=== PATIENT | female | born 1990 | race Caucasian/White ===

== ENCOUNTER → 2018-07-01 11:25 | Outpatient (CLI) | payer OTHER, SELFPAY ==
[2018-07-01 12:29] LABS: Appearance Urine UA CLEAR; Bilirubin Urine UA NEGATIVE (NEGATIVE); Color Urine UA YELLOW; Glucose Urine UA NEGATIVE (Normal); Ketones Urine UA NEGATIVE (NEGATIVE); Leukocyte Esterase Urine UA NEGATIVE (NEGATIVE); Nitrite Urine UA NEGATIVE (Negative); Occult Blood Urine UA NEGATIVE (Negative); Protein Urine UA NEGATIVE (Negative); Specific Gravity Urine UA 1.015 (1.000-1.035); Urobilinogen Urine UA 0.2 E.U./dL (0.2); pH Urine UA 6.5 (4.5-8.0)
[2018-07-01 12:41] LABS: Add Manual Diff / Slide Review NO; Basophils Percent Auto 0.5 % (0-2); Eosinophils Percent Auto 1.3 % (2-4); Hematocrit 40.2 % (36-46); Hemoglobin 13.5 g/dL (12.0-16.0); Lymphocytes Percent Auto 30.1 % (25-40); Mean Corpuscular HGB Conc 33.5 % (30-36); Mean Corpuscular Hemoglobin 29.5 PG (26-34); Mean Corpuscular Volume 88.1 fL (80-100); Monocytes Percent Auto 6.5 % (3-14); Neutrophils Absolute Auto 4800 /uL (1500-7000); Neutrophils Percent Auto 61.6 % (50-75); Platelet Count 246 X10^3/uL (150-400); Red Blood Cell Count 4.56 X10^6/uL (4.0-5.2); White Blood Cell Count 7.8 X10^3/uL (4.5-11.0)
[2018-07-01 15:08] LABS: HIV 1 and 2 Antibody NEGATIVE (NEGATIVE); Hep C Virus Ab w/Reflex Quant NEGATIVE s/c (NEGATIVE); Hepatitis B Surface Antigen NEGATIVE s/c (NEGATIVE); Rubella Antibody IgG 44.2 IU/mL (>15)
[2018-07-03 17:33] LABS: RPR Screen Reactive (Nonreactive); RPR Titer Reactive 1:1 titer (Nonreactive)
[2018-07-06 09:44] LABS: HSV 2 IGG AB < 0.90 index (< 0.90); HSV1IGG < 0.90 index (< 0.90)
== END ==
PROVIDERS: PCP Family Medicine; Visit Provider Family Medicine
DX: Z34.91 Encounter for supervision of normal pregnancy, unspecified, first trimester (principal)
CPT/HCPCS: 36415; 80055; 81003; 86695; 86696; 86703; 86787; 86803; 86850; 86900; 86901; 87086

== ENCOUNTER → 2018-07-07 16:49 | Outpatient (CLI) | payer OTHER, SELFPAY | PROVIDERS: PCP Family Medicine; Visit Provider Family Medicine | DX: A53.9 Syphilis, unspecified (principal); O98.119 Syphilis complicating pregnancy, unspecified trimester | CPT/HCPCS: 86780 ==

== ENCOUNTER → 2018-07-10 14:42 | Outpatient (CLI) | payer OTHER, SELFPAY ==
--- NOTE | 2018-07-10 14:43 | DI.US.S_ITS ---
PROCEDURE: US OB <= 14 WEEKS FETUS INDICATIONS: DATES OUTSIDE/PRIOR DATING DATA: Last menstrual period (LMP): 05/09/18. LMP-based estimated date of delivery (MARIA INES): 02/13/19. First dating scan (date and location): 07/10/18. Estimated date of delivery (MARIA INES) from first dating scan: 02/20/19. TECHNIQUE: Real-time scanning was performed of the fetus and maternal pelvic organs, with image documentation. Endovaginal scanning was also performed to better visualize the fetus and maternal ovaries. COMPARISON: None. FINDINGS: Embryo: Single intrauterine gestational sac is seen with the fetus has small yolk sac seen. heart rate is 162 beats per minute. [place]-rump length measures 1.3 cm. Estimated gestational age is 7 weeks 4 days. Small subchorionic hematoma is noted and measures 2.2 x 1.7 x 0.5 cm in size. Measurement variability in dating: +/- 4 weeks by LMP, +/- 7 days by mean sac diameter (use before 6 weeks gestation if crown-rump length not able to be measured), +/- 5 days by crown-rump length (up to 8 weeks 6 days gestation), +/- 7 days by crown-rump length (up to 13 weeks 6 days gestation). Maternal organs: Ovaries are are visualized and are within normal limits. Limited images through the kidneys demonstrate no hydronephrosis. IMPRESSION: Single live intrauterine with fetus in yolk sac seen. heart rate is 162 beats per minute. Estimated gestational age is 7 weeks 4 days. Small subchorionic hematoma measures 2.2 x 1.7 x 0.5 cm in size. Dictated by: Alfonzo Perera M.D. on 07/10/2018 at 16:07 Approved by: Alfonzo Perera M.D. on 07/10/2018 at 16:11
== END ==
PROVIDERS: PCP Family Medicine; Visit Provider Family Medicine
DX: Z34.01 Encounter for supervision of normal first pregnancy, first trimester (principal); Z3A.01 Less than 8 weeks gestation of pregnancy
CPT/HCPCS: 76801; 76817

== ENCOUNTER → 2018-09-20 16:26 | Outpatient (CLI) | payer OTHER, SELFPAY ==
[2018-09-26 11:53] LABS: Calc Gestational Age 17.6; Cigarette Smoker N; Donated Egg N; Donor Egg Age NOT GIVEN; Estriol, Free 1.01 ng/mL; Inhibin A, Dimeric 102 pg/mL; Maternal Weight 163 lbs; Number of Fetuses 1; Previous Pregnancy Down Syndro N; hCG, MoM 0.33
== END ==
PROVIDERS: PCP Family Medicine; Visit Provider Family Medicine
DX: Z34.81 Encounter for supervision of other normal pregnancy, first trimester (principal)
CPT/HCPCS: 36415; 82105; 82677; 84702; 86336

== ENCOUNTER → 2018-10-06 14:54 | Outpatient (CLI) | payer OTHER, SELFPAY ==
--- NOTE | 2018-10-06 14:55 | DI.US.S_ITS ---
PROCEDURE: US OB >= 14 WEEKS FETUS INDICATIONS: OUTSIDE/PRIOR DATING DATA: Last menstrual period (LMP): 05/09/18. LMP-based estimated date of delivery (MARIA INES): 02/13/19. First dating scan (date and location): 07/10/18. Estimated date of delivery (MARIA INES) from first dating scan: 02/20/19. TECHNIQUE: Real-time scanning was performed of the fetus, with image documentation and biometric measurements. Endovaginal scanning: No COMPARISON: [facility], OB <= 14 WEEKS FETUS, 07/10/2018, 14:49. FINDINGS: General: A single living intrauterine gestation is present. Presentation: Transverse. Placenta: Placental position is anterior, without previa. Amniotic fluid index: 14.6 cm, normal range is 5-24 cm. heart rate: 155 beats per minute. Maternal cervical canal: 3.5 cm long. Normal lower limit is 2.5 cm. biometrics: Biparietal diameter: 20 weeks 3 days Head circumference: 20 weeks 3 days Abdominal circumference: 20 weeks 3 days Femur length: 18 weeks 5 days Estimated gestational age from initial scan: 20 weeks 1 day Composite gestational age from present scan: 20 weeks 0 days Estimated weight and percentile: 309 g; 24th percentile Measurement variability for biometric dating: +/- 7 days from 14 weeks to 15 weeks 6 days gestation, +/- 10 days from 16 weeks to 21 weeks 6 days gestation, +/- 2 weeks from 22 weeks to 27 weeks 6 days gestation, +/- 3 weeks for 28 weeks gestation or later. weight reference: 4500 g or EFW >90/95% is considered macrosomia or large for gestational age. EFW <10% is small for gestational age. EFW 5% or less is considered intra-uterine growth restriction. Anatomic survey: Neuro: Ventricles are non-dilated at less than 10 mm. Cisterna magna is normal at 3-11 mm. Cerebellum is normal in size and morphology. Nuchal skin fold: Normal at less than 6 mm between 14-21 weeks gestational age. Face: Nose and lips, facial profile are normal. Spine: No evidence for spina bifida. Heart: 4-chambered heart is present, with normal ventricular outflow tracts. Diaphragm: Diaphragm is intact. Stomach: Left-sided stomach is present. Kidneys: No hydronephrosis. Normal is less than 5 mm in 2nd trimester, less than 7 mm in 3rd trimester. Cord: 3-vessel cord has orthotopic insertion. Bladder: Normal in size. Extremities: All 4 extremities identified. IMPRESSION: 1. Single living IUP we demonstrated an interval growth is normal. 2. Normal anatomic survey. Dictated by: Ole Chaidez [facility] Interpreted: Yrn Reeder MD on 10/06/2018 at 16:20 Approved by: Yrn Reeder M.D. on 10/06/2018 at 17:43
== END ==
PROVIDERS: PCP Family Medicine; Visit Provider Family Medicine
DX: Z34.92 Encounter for supervision of normal pregnancy, unspecified, second trimester (principal); Z36.89 Encounter for other specified antenatal screening; Z3A.20 20 weeks gestation of pregnancy
CPT/HCPCS: 76811

== ENCOUNTER → 2018-12-06 16:44 | Outpatient (CLI) | payer OTHER, SELFPAY ==
[2018-12-06 18:15] LABS: Hematocrit 35.5 % (36-46)
[2018-12-06 18:47] LABS: GTT (PREG) 1 Hour PP 50gm Dose 155 mg/dL (76-139)
== END ==
PROVIDERS: PCP Family Medicine; Visit Provider Family Medicine
DX: Z34.93 Encounter for supervision of normal pregnancy, unspecified, third trimester (principal)
CPT/HCPCS: 36415; 82950; 85014; 85018

== ENCOUNTER → 2018-12-20 06:54 | Outpatient (CLI) | payer OTHER, SELFPAY ==
[2018-12-20 10:14] LABS: Glucose Fasting Gestational 79 mg/dL (76-95)
[2018-12-20 10:15] LABS: Glucose 1 Hour Gest 158 mg/dL (76-180)
[2018-12-20 10:22] LABS: Glucose Tol Interp,Gestational INTERPRETATION
[2018-12-20 11:35] LABS: Glucose 3 Hour Gest 114 mg/dL (76-140)
[2018-12-20 11:37] LABS: Glucose 2 Hour Gest 120 mg/dL (76-155)
== END ==
PROVIDERS: PCP Family Medicine; Visit Provider Family Medicine
DX: O24.419 Gestational diabetes mellitus in pregnancy, unspecified control (principal)
CPT/HCPCS: 36415; 82951; 82952

== ENCOUNTER → 2019-01-31 13:26 | Outpatient (CLI) | payer OTHER, SELFPAY ==
[2019-02-01 12:51] LABS: Strep Grp B PCR NEG for Grp B Strep
== END ==
PROVIDERS: PCP Family Medicine; Visit Provider Family Medicine
DX: Z3A.36 36 weeks gestation of pregnancy (principal); Z34.03 Encounter for supervision of normal first pregnancy, third trimester
CPT/HCPCS: 87653

== ENCOUNTER 2019-03-02 15:17 | Outpatient (CLI) | payer OTHER, SELFPAY ==
--- NOTE | 2019-03-02 16:20 | PM.OBTRLD ---
Visit Information Visit Information Date of evaluation: 03/02/19 Primary OB Provider: Shadia Petersen Reason for Evaluation: Yes non-stress test non-stress test reason: other (postdates) PFSH Social History Smoking Status: Former smoker Evaluation Evaluation Baseline heart rate: 130 Variability: Moderate (11-25) monitor accelerations: Present monitor decelerations: Absent Category of Tracing: I Diagnosis, Plan/Disposition Final Diagnosis (1) 40 weeks gestation of : Current Visit: Yes Status: Acute Plan/Disposition Plan: 29 year old at 40+6 weeks. NST done for postdates. NST reactive. Scheduled for induction 03/05/19.
== END 2019-03-02 16:35 | disposition home or self-care (01) ==
LOC: LABOR 15:23 → OB 03-06 11:03
PROVIDERS: PCP Family Medicine; Visit Provider Family Medicine
DX: O48.0 Post-term pregnancy (principal); Z3A.40 40 weeks gestation of pregnancy
CPT/HCPCS: 59025; G0378; G0379

== ENCOUNTER 2019-03-05 06:51 | Inpatient (IN) | payer OTHER, SELFPAY ==
[2019-03-05] MEDS: OXYTOCIN PREMIX 30 UNIT/500 ML PLAST..BAG IV (07:50)
[2019-03-05] MEDS: LACTATED RINGERS 1,000 ML 100 ML IV ×2 (07:51→15:00)
[2019-03-05 08:10] LABS: Add Manual Diff / Slide Review NO; Basophils Absolute Auto 100 /uL (0-100); Basophils Percent Auto 0.5 % (0-2); Eosinophils Absolute Auto 100 /uL (0-450); Hematocrit 37.7 % (36-46); Hemoglobin 12.7 g/dL (12.0-16.0); Lymphocytes Absolute Auto 2300 /uL (1100-4500); Lymphocytes Percent Auto 23.7 % (25-40); Mean Corpuscular HGB Conc 33.6 % (30-36); Mean Corpuscular Hemoglobin 30.3 PG (26-34); Monocytes Absolute Auto 800 /uL (0-900); Monocytes Percent Auto 8.1 % (3-14); Neutrophils Absolute Auto 6400 /uL (1500-7000); Neutrophils Percent Auto 66.7 % (50-75); Platelet Count 198 X10^3/uL (150-400); Red Blood Cell Count 4.19 X10^6/uL (4.0-5.2); White Blood Cell Count 9.6 X10^3/uL (4.5-11.0)
--- NOTE | 2019-03-05 08:19 | P.HPOB_ITS ---
OB HPI Date/Time Date of admission: 03/05/19 Date Patient Seen: 03/05/19 Time Patient Seen: 07:20 History of Present Condition Chief complaint: evaluation of labor/induction : 1 Para: 0 Estimated Date of Delivery: 02/24/19 Estimated Gestational Age (weeks): 41w2d Narrative: Sil Marks is a 29 year old at 41+2 weeks here for postdates induction. Indications Indication for induction OB: post dates History of Present care: good care, initiated at week # (9 weeks), number of visits (15) and pounds weight gain (46) Dating criteria: based on 1st trimester US only Ultrasounds: normal mid trimester US Obstetrical complications: none Medical complications: none Preadmission Labs Blood type: O (+) positive -: Antibody screen: negative, GBS status: negative, HBsAG: negative, HIV: negative, HSV 1: negative, HSV 2: negative and RPR/VDLR: positive (confirmatory testing negatve) -: Rubella: immune and Varicella: immune HCT: 40.2 HCAB: negative Quad screen: Normal Urine: Negative 1 hr GTT: 155 3 hr GTT: 3 hr (79, 158, 120, 114) Evaluation Evaluation Baseline heart rate: 130 Variability: Moderate (11-25) monitor accelerations: Present monitor decelerations: Absent Category of Tracing: I Cervical dilation (cm): 3 Cervical effacement (%): 90 station: 0 Laboratory results: Laboratory Tests 03/05/19 07:40 WBC 9.6 RBC 4.19 Hgb 12.7 Hct 37.7 MCV 90.0 MCH 30.3 MCHC 33.6 RDW 14.0 Plt Count 198 Neut % (Auto) 66.7 Lymph % (Auto) 23.7 L [place] % (Auto) 8.1 Eos % (Auto) 1.0 L Baso % (Auto) 0.5 Neut # (Auto) 6400 Lymph # (Auto) 2300 [place] # (Auto) 800 Eos # (Auto) 100 Baso # (Auto) 100 PFSH Medical History Acne (Chronic 2004) Anemia (Chronic) Migraines (Chronic 2004) Chicken pox (Resolved 1992) Plantar warts (Resolved) Surgical History Anesthesia (Resolved) History of tonsillectomy (Resolved 1995) Status post appendectomy (Resolved 2006) Family History Father High cholesterol Grandfather Cancer Heart disease Hypertension High cholesterol Skin cancer Colon cancer S/P triple vessel bypass Grandfather Heart disease Heart attack Grandmother Cancer Breast cancer Lung cancer Brother No problems noted. Grandmother Celiac disease Mother No problems noted. Social History Smoking Status: Former smoker Family History Father High cholesterol Grandfather Cancer Heart disease Hypertension High cholesterol Skin cancer Colon cancer S/P triple vessel bypass Grandfather Heart disease Heart attack Grandmother Cancer Breast cancer Lung cancer Brother No problems noted. Grandmother Celiac disease Mother No problems noted. Social History Smoking Status: Former smoker Meds Home Medications Medication Instructions Recorded Confirmed Type vit-iron fum-folic ac 1 cap PO QDAY #0 07/17/17 History [Mynatal] B-complex with vitamin C tablet 1 tab PO DAILY 06/28/18 06/28/18 History cholecalciferol (vitamin D3) 1,000 1,000 unit PO DAILY 06/28/18 06/28/18 History unit capsule Allergies Allergy/AdvReac Type Severity Reaction Status Date / Time amoxicillin [AMOXICILLIN] Allergy Mild rash as Unverified 04/17/18 09:40 infant Review of Systems Cardiovascular Cardiovascular: Reports leg swelling Exam Const General: healthy appearing and comfortable [facility] Head: normal to inspection Ears: hearing grossly normal bilaterally Nose: external nose normal Face and sinus: normal facial exam Mouth: oral mucosae normal Eyes General: appearance normal, both eyes and all related structures Neck Neck: normal visual inspection Resp Effort & Inspection: normal respiratory effort Auscultation: clear to auscultation bilaterally Cardio Rate: regular rate Rhythm: regular rhythm Heart Sounds: no murmurs GI Other: Gravid External Female Exam: external appearance normal Manual OB Exam: dilated 3, effaced (90) and station 0 Presentation: vertex Estimated Weight (lbs): 7 Back/Spine/Pelvis Back: normal to inspection Skin General: no rashes or lesions noted Extrem General: normal to inspection and edema (trace bilaterally) Objective Labs Result Diagrams: 03/05/19 07:40 Labs: Laboratory Results - last 24 hr 03/05/19 07:40 WBC 9.6 RBC 4.19 Hgb 12.7 Hct 37.7 MCV 90.0 MCH 30.3 MCHC 33.6 RDW 14.0 Plt Count 198 Neut % (Auto) 66.7 Lymph % (Auto) 23.7 L [place] % (Auto) 8.1 Eos % (Auto) 1.0 L Baso % (Auto) 0.5 Neut # (Auto) 6400 Lymph # (Auto) 2300 [place] # (Auto) 800 Eos # (Auto) 100 Baso # (Auto) 100 Assessment and Plan Assessment and Plan Assessment and Plan narrative: 29 year old at 41 weeks and 2 days gestation here for postdates induction. GBS negative, O+. Rivas score of 8. Plan - Pitocin per protocal - Nitrous oxide, epidural upon request
[2019-03-05 09:05] VITALS: BP 136/79
--- NOTE | 2019-03-05 18:17 | PM.OBPRVD ---
Delivery date: 03/05/19 Intrapartal events: None Induction method: per pitocin protocol Delivery augmentation: rupture of membranes Delivery monitor: external FHT Route of delivery: L&D Laceration Description: Vaginal - 2nd Degree and Labial (Second degree on the right, first degree on the left) Delivery repair: vicryl Estimated blood loss (mL): 250 Anesthesia type: Epidural Narrative: Patient is a 29-year-old GP at 41w2d weeks who gave on 03/05/19 at 17:23. MARIA INES: 02/24/19 Patient was admitted for postdates induction and started on pitocin per protocol. STAGE I: Labor Stage 1 began at 14:49 shortly after AROM with thin meconium. Patient received an epidural with good pain control. She was complete at 16:43. FHT were category 1 throughout stage one with the exception of a couple late decelerations associated with uterine hyperstimulation. STAGE II: Delivery The second stage of labor lasted 40 minutes. Spontaneous vaginal delivery occurred at 17:23. was vertex and SAURABH. FHT were category 2 throughout stage 2 with decelerations to the 70's with pushing that resolved with position change. Apgars were 9 and 9. Cord was clamped and cut after one minute delay. STAGE III: Placenta/Cord The placenta delivered spontaneously at 17:31 and appeared intact with a three vessel cord. Pitocin bolus given after delivery of placenta. The third stage of labor lasted 8 minutes. A second degree right labial laceration and first degree left labia laceration were repaired with 4-O vicryl in the usual fashion. A second degree vaginal laceration was repaired with 3-O vicryl in the usual fashion. Hemostasis achieved. EBL: 250 mL. Needle and sponge counts were correct. The vagina was inspected and no items were left in situ. Patient was doing well with and at bedside. Baby 1: gender: Male Presentation: vertex position: Right Occiput Anterior Placenta delivery description: Spontaneous cord vessel description: 3 Vessels score (1 min): 9 score (5 min): 9
[2019-03-05] MEDS: LANOLIN OINT 7 GM 1 APPLIC TOP (21:48)
[2019-03-05] MEDS: DERMOPLAST SPRAY 20% 60 ML 1 SPRAY TOP (21:48)
[2019-03-05] MEDS: IBUPROFEN 600 MG TABLET PO (21:48)
[2019-03-06] MEDS: IBUPROFEN 600 MG TABLET PO ×2 (07:16→13:19)
[2019-03-06] MEDS: DOCUSATE 250 MG CAPSULE PO (08:27)
--- NOTE | 2019-03-06 13:20 | PM.OBDS.1 ---
Discharge Providers Date of admission: 03/05/19 06:51 Discharge Date: 03/06/19 Primary care physician: Christy Gay MD Consults: 03/05/19 18:48 Consult to [employer] Routine Comment: Discharge provider: Shadia Petersen DO Summary Date Patient Seen: 03/06/19 Time Patient Seen: 12:30 Procedures: Spontaneous vaginal delivery Epidural analgesia Hospital Course: Patient is a 29 year old 1 day after uncomplicated spontaneous vaginal delivery. Patient came in for post-dates induction and progressed well with Pitocin per protocol. There was thin meconium after artificial rupture of membranes. She received an epidural with adequate pain control. Delivery was uncomplicated. was vigorous at delivery and did not require resuscitation. Labial and vaginal lacerations were repaired in the usual fashion. course unremarkable. is going very well. No issues with ambulation, bowel or bladder function. Patient reports vaginal bleeding is moderate and similar to a period. Pain well controlled with ibuprofen as well as ice and Dermoplast for perineal pain. She and her were eager to return home. Peripartum Data Delivery Method: Natural Vaginal Laceration description: Labial (Second-degree on right, first degree on left) complications: none [place] 1: Gender: Male Disposition of : home Discharge Diagnosis (1) 41 weeks gestation of : Status: Acute (2) Spontaneous vaginal delivery: Status: Acute Status at Discharge Cognitive/behavioral status at discharge: at baseline, oriented Functional status at discharge: independent ambulation Overall status at discharge: patient is progressing back to baseline Time Spent with Patient Total time spent providing and/or coordinating discharge services: Less than 30 minutes Objective Labs Result Diagrams: 03/05/19 07:40 Exam Vital Signs (past 8 hours): Temperature 98.4? Blood pressure 124/78 Heart rate 103 Respirations 16 Narrative Exam Narrative: General: Awake and alert, no acute distress. HEENT: NCAT, EOMI, moist oral mucosa CV: Regular rate and rhythm, no murmurs, rubs or gallops Lungs: CTAB, no wheezes, rales, or rhonchi Abdomen: Soft, nontender; bowel tones active; uterus firm 1 cm below umbilicus Genitourinary: Vaginal and labial lacerations well approximated. Normal lochia without odor. Extremities: Warm, trace edema, 2+ pedal pulses bilaterally Discharge Plan Discharge Plan Patient Disposition: Home Discharge comment: Call for fevers, severe pain or bleeding through more than a pad an hour. Discharge Med Rec/Prescriptions Prescriptions: New docusate sodium 250 mg Capsule 250 mg PO DAILY Qty: 30 RF: 0 Continued Mynatal 1 EACH capsule 1 cap PO QDAY Qty: 0 RF: 0 cholecalciferol (vitamin D3) 1,000 unit capsule 1,000 unit PO DAILY RF: 0 B-complex with vitamin C tablet 1 tab PO DAILY RF: 0 Follow up/Referrals: Christy Gay MD [Primary Care Provider] - 6 Weeks ('s nurse will make your appointment for 6 weeks at [place]'s appointment) Provider Discharge Instructions Diet: Diet as Tolerated Skin/Wound/Dressing Care Report to your healthcare provider any signs of infection, such as:: chills, fever, increased pain, unusual drainage and unusual redness Visit Report/Discharge Packet Instructions: DI for Vaginal Discharge Visit Report Forms: Stroke Signs & Symptoms Discharge Data Primary Care Provider: Christy Gay Attending Provider: Shadia Petersen Admit Date/Time: 03/05/19 06:51
[2019-03-06 15:12] VITALS: BP 124/74; PULSE 89; RESP 16; TEMP 37
== END 2019-03-06 19:00 | disposition home or self-care (01) | DRG 807 ==
PROVIDERS: Admitting Provider Family Medicine; PCP Family Medicine; Visit Provider Family Medicine
DX: O48.0 Post-term pregnancy (principal); Z37.0 Single live birth; Z3A.41 41 weeks gestation of pregnancy; O70.1 Second degree perineal laceration during delivery
CPT/HCPCS: 01967; 59050; 59400; 59409; 85025; 86850; 86900; 86901; G0379; J2590

== ENCOUNTER → 2020-10-13 08:14 | Outpatient (CLI) | payer OTHER, SELFPAY ==
[2020-10-13 08:33] LABS: COVID19 -Nasal RAPID Negative (Negative)
== END ==
PROVIDERS: PCP Family Medicine; Visit Provider Physician Assistant
DX: Z20.822 Contact with and (suspected) exposure to COVID-19 (principal)
CPT/HCPCS: 87635

== ENCOUNTER → 2021-04-24 15:25 | Outpatient (CLI) | payer OTHER, SELFPAY ==
[2021-04-24 16:41] LABS: Add Manual Diff / Slide Review NO; Basophils Absolute Auto 0 /uL (0-100); Basophils Percent Auto 0.3 % (0-2); Eosinophils Absolute Auto 100 /uL (0-450); Eosinophils Percent Auto 1.2 % (2-4); Hematocrit 36.5 % (36-46); Hemoglobin 12.4 g/dL (12.0-16.0); Lymphocytes Absolute Auto 2600 /uL (1100-4500); Mean Corpuscular Hemoglobin 29.4 PG (26-34); Mean Corpuscular Volume 86.5 fL (80-100); Monocytes Absolute Auto 600 /uL (0-900); Monocytes Percent Auto 6.8 % (3-14); Neutrophils Absolute Auto 6100 /uL (1500-7000); Neutrophils Percent Auto 64.7 % (50-75); Platelet Count 251 X10^3/uL (150-400); Red Blood Cell Count 4.22 X10^6/uL (4.0-5.2); Red Cell Distribution Width 13.5 % (11.6-14.8); White Blood Cell Count 9.5 X10^3/uL (4.5-11.0)
[2021-04-24 16:52] LABS: Appearance Urine UA CLOUDY; Bilirubin Urine UA NEGATIVE (NEGATIVE); Color Urine UA YELLOW; Glucose Urine UA NEGATIVE (Negative); Ketones Urine UA NEGATIVE (NEGATIVE); Leukocyte Esterase Urine UA 1+ (NEGATIVE); Nitrite Urine UA NEGATIVE (Negative); Occult Blood Urine UA NEGATIVE (Negative); Protein Urine UA NEGATIVE (Negative); Urobilinogen Urine UA 0.2 E.U./dL (0.2)
[2021-04-24 17:24] LABS: Bacteria Urine None Seen; RBC Urine 0-1/HPF (0-5/HPF); Squamous Epithelial Cell Urine 5-10 /HPF (0-5/HPF); Transitional Epi Cells Urine 5-10/HPF (0-5/HPF); WBC Urine 5-10/HPF (0-5/HPF)
[2021-04-25 09:39] LABS: Varicella IgG Antibody 550 index (Immune >165)
[2021-04-27 18:46] LABS: Hepatitis B Surface Antigen NEGATIVE s/c (NEGATIVE); Rubella Antibody IgG 31.3 IU/mL (>15)
[2021-04-27 19:06] LABS: HIV 1 & 2 Ab/Ag 4th Gen Combo NEGATIVE (NEGATIVE); Hep C Virus Ab w/Reflex Quant NEGATIVE s/c (NEGATIVE)
[2021-06-25 14:48] LABS: RPR Screen REACTIVE
== END ==
PROVIDERS: PCP Family Medicine; Referring Provider Family Medicine; Visit Provider Family Medicine
DX: Z34.81 Encounter for supervision of other normal pregnancy, first trimester (principal)
CPT/HCPCS: 36415; 80055; 81003; 81015; 86787; 86803; 86850; 86900; 86901; 87086; 87389

== ENCOUNTER → 2021-05-18 15:56 | Outpatient (CLI) | payer OTHER, SELFPAY ==
[2021-05-21 21:17] LABS: AFP, Serum 27.1 ng/mL (.); Calc Gestational Age Ultrasound (.); Estriol, Free 0.88 ng/mL (.); Inhibin A, Dimeric 86.69 pg/mL (.); Inhibin A, MoM 0.59 (.); Maternal Ethnicity Caucasian (.); Maternal Weight 166 lbs (.); Number of Fetuses No (.); OSBR Risk 1 IN 10000 (.); Results Report (.); Test Results *Screen Negative* (.); hCG, MoM 0.79 (.); hCG, Serum 25209 mIU/mL (.)
== END ==
PROVIDERS: PCP Family Medicine; Referring Provider Family Medicine; Visit Provider Family Medicine
DX: Z34.90 Encounter for supervision of normal pregnancy, unspecified, unspecified trimester (principal); Z3A.17 17 weeks gestation of pregnancy
CPT/HCPCS: 36415; 82105; 82677; 84702; 86336

== ENCOUNTER → 2021-06-17 07:43 | Outpatient (CLI) | payer OTHER, SELFPAY ==
--- NOTE | 2021-06-17 07:45 | DI.US.S_ITS ---
PROCEDURE: US OB >= 14 WEEKS FETUS INDICATIONS: ANATOMY OUTSIDE/PRIOR DATING DATA: Last menstrual period (LMP): Unknown. LMP-based estimated date of delivery (MARIA INES): Unknown. First dating scan (date and location): 06/17/2021. Estimated date of delivery (MARIA INES) from first dating scan: 10/26/2021. The calculations are made using the ultrasound MARIA INES of 10/26/2021. TECHNIQUE: Real-time scanning was performed of the fetus, with image documentation and biometric measurements. COMPARISON: [facility], OB >= 14 WEEKS FETUS, 10/06/2018, 15:04. FINDINGS: General: A single living intrauterine gestation is present. Presentation: Vertex. Placenta: Placental position is anterior. Low lying placenta 1.4 cm from the internal cervical os. Amniotic fluid index: 17.3 cm, normal range is 5-24 cm. Single deepest vertical pocket is 5.4 cm. heart rate: 139 beats per minute. Maternal cervical canal: 4.9 cm long. Normal lower limit is 2.5 cm. biometrics: Biparietal diameter: 5.2 cm, 21 weeks 5 days Head circumference: 19.0 cm, 21 weeks 2 days Abdominal circumference: 16.4 cm, 21 weeks 3 days Femur length: 3.4 cm, 20 weeks 5 days Composite gestational age from present scan: 21 weeks 2 days Estimated weight: 403 g Anatomic survey: Neuro: Ventricles are non-dilated at less than 10 mm. Cisterna magna is normal at 3-11 mm. Cerebellum is normal in size and morphology. Nuchal skin fold: Normal at less than 6 mm between 14-21 weeks gestational age. Face: Nose and lips, facial profile are normal. Spine: No evidence for spina bifida. Heart: 4-chambered heart is present, with normal ventricular outflow tracts. Diaphragm: Diaphragm is intact. Stomach: Left-sided stomach is present. Kidneys: No hydronephrosis. Normal is less than 5 mm in 2nd trimester, less than 7 mm in 3rd trimester. Cord: 3-vessel cord has orthotopic insertion. Bladder: Normal in size. Extremities: All 4 extremities identified. IMPRESSION: 1. [place] living intrauterine at 21 weeks 2 days based on today's ultrasound. 2. Normal amniotic fluid. Low lying placenta 1.4 cm from the internal cervical os. 3. Normal and complete anatomic survey. Recommend follow-up OB ultrasound to evaluate the placenta edge. We strive to produce accurate, complete, and clear reports of imaging services. To assist us in improving patient care, this report was composed using standard report templates and voice recognition software. Therefore, it may contain abnormal punctuation, insertions and/or omissions. Occasional wrong-word or sound-alike substitutions may occur. Though we review the report and make efforts to correct it, we do recommend that the report be read carefully in proper context to recognize any text inaccuracies. Dictated by: Nazario Garcia M.D. on 06/17/2021 at 9:00 Approved by: Nazario Garcia M.D. on 06/17/2021 at 9:06
== END ==
PROVIDERS: PCP Family Medicine; Referring Provider Family Medicine; Visit Provider Family Medicine
DX: Z36.89 Encounter for other specified antenatal screening (principal); Z3A.21 21 weeks gestation of pregnancy
CPT/HCPCS: 76811; 76817

== ENCOUNTER → 2021-07-17 08:17 | Outpatient (CLI) | payer OTHER, SELFPAY ==
--- NOTE | 2021-07-17 08:19 | DI.US.S_ITS ---
PROCEDURE: US OB FOLLOW UP INDICATIONS: FOLLOW UP PLACENTAL LOCATION OUTSIDE/PRIOR DATING DATA: First dating scan (date and location): 06/17/2021. Estimated date of delivery (MARIA INES) from first dating scan: 10/26/2021. The calculations are made using the ultrasound MARIA INES of 10/26/2021. TECHNIQUE: Real-time scanning was performed of the fetus, with image documentation and biometric measurements. COMPARISON: [facility], , OB >= 14 WEEKS FETUS, 06/17/2021, 8:04. FINDINGS: General: A single living intrauterine gestation is present. Presentation: Variable. Placenta: Placental position is anterior , without previa. Amniotic fluid index: 20.9 cm, normal range is 5-24 cm. heart rate: 144 beats per minute. Maternal cervical canal: 4.6 cm long. Normal lower limit is 2.5 cm. Clinically estimated gestational age: 25 weeks 4 days IMPRESSION: Single living IUP redemonstrated and low lying placenta has resolved. We strive to produce accurate, complete, and clear reports of imaging services. To assist us in improving patient care, this report was composed using standard report templates and voice recognition software. Therefore, it may contain abnormal punctuation, insertions and/or omissions. Occasional wrong-word or sound-alike substitutions may occur. Though we review the report and make efforts to correct it, we do recommend that the report be read carefully in proper context to recognize any text inaccuracies. Dictated by: Ole PADILLA Interpreted: Nazario Garcia MD on 07/17/2021 at 10:01 Transcribed by: RON on 07/17/2021 at 10:04 Approved by: Nazario Garcia M.D. on 07/17/2021 at 11:29
[2021-07-17 10:04] LABS: Add Manual Diff / Slide Review NO; Basophils Absolute Auto 0 /uL (0-100); Basophils Percent Auto 0.1 % (0-2); Eosinophils Absolute Auto 100 /uL (0-450); Eosinophils Percent Auto 0.8 % (2-4); Hematocrit 36.1 % (36-46); Hemoglobin 12.2 g/dL (12.0-16.0); Lymphocytes Absolute Auto 1700 /uL (1100-4500); Lymphocytes Percent Auto 18.9 % (25-40); Mean Corpuscular HGB Conc 33.9 % (30-36); Mean Corpuscular Hemoglobin 30.2 PG (26-34); Monocytes Absolute Auto 500 /uL (0-900); Monocytes Percent Auto 5.7 % (3-14); Neutrophils Absolute Auto 6800 /uL (1500-7000); Neutrophils Percent Auto 74.5 % (50-75); Platelet Count 201 X10^3/uL (150-400); Red Blood Cell Count 4.06 X10^6/uL (4.0-5.2); Red Cell Distribution Width 13.9 % (11.6-14.8); White Blood Cell Count 9.1 X10^3/uL (4.5-11.0)
[2021-07-17 10:40] LABS: GTT (PREG) 1 Hour PP 50gm Dose 99 mg/dL (76-139)
== END ==
PROVIDERS: PCP Family Medicine; Referring Provider Family Medicine; Visit Provider Family Medicine
DX: Z3A.25 25 weeks gestation of pregnancy; O43.102 Malformation of placenta, unspecified, second trimester
CPT/HCPCS: 36415; 76816; 82950; 85025

== ENCOUNTER → 2021-07-20 16:42 | Outpatient (CLI) | payer OTHER, SELFPAY ==
[2021-07-20 17:31] LABS: COVID19 -Nasal RAPID Negative (Negative)
== END ==
PROVIDERS: PCP Family Medicine; Referring Provider Nurse Practitioner Family; Visit Provider Nurse Practitioner Family
DX: Z20.822 Contact with and (suspected) exposure to COVID-19 (principal)
CPT/HCPCS: 87635

== ENCOUNTER → 2021-10-02 15:33 | Outpatient (CLI) | payer OTHER, SELFPAY ==
[2021-10-04 12:51] LABS: Strep Grp B PCR POS for Grp B Strep
== END ==
PROVIDERS: Family Provider Family Medicine; PCP Family Medicine; Visit Provider Family Medicine
DX: Z36.85 Encounter for antenatal screening for Streptococcus B (principal); Z3A.36 36 weeks gestation of pregnancy
CPT/HCPCS: 87186; 87653

== ENCOUNTER → 2021-10-09 15:35 | Outpatient (CLI) | payer OTHER, SELFPAY | PROVIDERS: Family Provider Family Medicine; PCP Family Medicine; Visit Provider Family Medicine | DX: Z34.83 Encounter for supervision of other normal pregnancy, third trimester (principal); Z3A.37 37 weeks gestation of pregnancy | CPT/HCPCS: 87081; 87653 ==

== ENCOUNTER 2021-10-24 00:51 | Outpatient (CLI) | payer OTHER, SELFPAY ==
--- NOTE | 2021-10-24 19:04 | P.TNLD_ITS ---
Visit Information Visit Information Date of evaluation: 10/24/21 Primary OB Provider: Christy Gay On-call OB Provider: Rocío Medellin Reason for Evaluation: Yes rule out labor Comments/Additional reasons for admission: This patient is a 31yo @39+5 presenting for eval of labor with painful contractions after a membrane stripping in the office on 10/23. Good movement, no bleeding, no LOF, otherwise uncomplicated history. Vital Signs Vital Signs: 128/72, HR 75 PFSH Medical History Acne (2004) Allergic rhinitis (~2005) Anemia (~2008) Chicken pox (1992) Family hx of colon cancer Migraines (2004) Plantar warts (~1998) Spontaneous vaginal delivery (~2018) Surgical History Anesthesia Bone marrow donor (~09/09/20) History of tonsillectomy (1995) Status post appendectomy (2006) Family History Father High cholesterol Benign colonic polyp Grandfather Heart disease Hypertension High cholesterol Skin cancer Colon cancer S/P triple vessel bypass Grandfather Heart disease Heart attack Grandmother Lung cancer Breast cancer Smoker Brother No problems noted. Grandmother Celiac disease Mother Asthma S/P hysterectomy Family/Other Prostate cancer Skin cancer Brother Leukemia Social History marital status: number of children: 1 household members: spouse and children lives independently: Yes caregiver/support person: No housing: house pets and animals: Yes (2 dogs: do great with babies. 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 Used to be an 'avid coffee drinker'. ) Type(s) of exercise: walking (On weekends, a couple mile walks. ) and normal ROM and activity (Busy mom to 2 year old. Very active at work. ) frequency: daily Evaluation Evaluation Baseline heart rate: 125 Variability: Average (6-10) monitor accelerations: Present Monitor Decelerations: Absent Contraction Frequency (minutes): 5 Uterine Contraction Intensity: Moderate Category of Tracing: Reactive Status: Category l Cervical dilation (cm): 2 Cervical effacement (%): 80 Diagnosis, Plan/Disposition Plan/Disposition Plan: Home with labor precautions. OB Disposition: home
== END 2021-10-24 01:36 | disposition home or self-care (01) ==
LOC: OB 11-02 09:24
PROVIDERS: Family Provider Family Medicine; PCP Family Medicine; Referring Provider Family Medicine; Visit Provider Family Medicine
DX: O47.1 False labor at or after 37 completed weeks of gestation (principal); Z3A.39 39 weeks gestation of pregnancy
CPT/HCPCS: 59025; G0378; G0379

== ENCOUNTER 2021-10-25 00:54 | Inpatient (IN) | payer OTHER, SELFPAY ==
[2021-10-25] MEDS: CEFAZOLIN 2 GM/20 ML SYRINGE IV (02:29)
[2021-10-25 03:03] LABS: Add Manual Diff / Slide Review NO; Basophils Absolute Auto 0 /uL (0-100); Basophils Percent Auto 0.2 % (0-2); Eosinophils Absolute Auto 100 /uL (0-450); Eosinophils Percent Auto 0.9 % (2-4); Hematocrit 32.7 % (36-46); Hemoglobin 10.9 g/dL (12.0-16.0); Lymphocytes Absolute Auto 2700 /uL (1100-4500); Lymphocytes Percent Auto 24.1 % (25-40); Mean Corpuscular HGB Conc 33.2 % (30-36); Mean Corpuscular Hemoglobin 27.5 PG (26-34); Mean Corpuscular Volume 82.8 fL (80-100); Monocytes Absolute Auto 900 /uL (0-900); Monocytes Percent Auto 7.7 % (3-14); Neutrophils Absolute Auto 7500 /uL (1500-7000); Neutrophils Percent Auto 67.1 % (50-75); Platelet Count 219 X10^3/uL (150-400); Red Blood Cell Count 3.95 X10^6/uL (4.0-5.2); Red Cell Distribution Width 13.8 % (11.6-14.8); White Blood Cell Count 11.1 X10^3/uL (4.5-11.0)
[2021-10-25 03:10] LABS: COVID19 -Nasal RAPID Negative (Negative)
[2021-10-25 04:13] VITALS: BP 133/88
[2021-10-25] MEDS: PANTOPRAZOLE DR 20 MG TABLET PO (08:59)
[2021-10-25] MEDS: LACTATED RINGERS 1,000 ML 100 ML IV (09:39)
[2021-10-25] MEDS: OXYTOCIN PREMIX 30 UNIT/500 ML PLAST..BAG IV (09:39)
--- NOTE | 2021-10-25 10:08 | P.HPOB_ITS ---
OB HPI Date/Time Date of admission: 10/25/21 Date Patient Seen: 10/25/21 Time Patient Seen: 10:08 History of Present Condition Chief complaint: MARIA INES Calculator Estimated Delivery Date Method Current WG Current Estimate 10/26/21 Manual 39w 6d Final MARIA INES - MARLA Other Estimates 10/21/21 LMP (Certain) 40w 4d 10/26/21 Ultrasound #1 39w 6d 10/24/21 Conception 40w 1d Estimated Gestational Age (weeks): 39w6d : 2 Para: 1 Narrative: Pt is a 31yo at 39w6d who presented with ROM at home. Pt reports having a gush of fluid 12:10am, and has continued to leak fluid since then. She has felt mild contractions. No significant vaginal bleeding since ROM. She is feeling her baby move regularly. The pts has been uncomplicated. care: good care, initiated at week # (8) and pounds weight gain (39) Dating criteria OB: based on 1st trimester US only Ultrasounds: normal mid trimester US Obstetrical complications: none Medical complications OB: none Preadmission Labs Last OB Lab Results: Blood Type O Positive 10/25/21 02:45 10/25/21 Antibody Screen Negative 10/25/21 02:45 10/25/21 Hematocrit 32.7 % (36-46) L 10/25/21 02:45 10/25/21 Hemoglobin 10.9 g/dL (12.0-16.0) L 10/25/21 02:45 10/25/21 Hepatitis B Surface Antigen Negative s/c (NEGATIVE) 04/24/21 16:10 04/24/21 Hepatitis C Antibody Negative s/c (NEGATIVE) 04/24/21 16:10 04/24/21 RPR Titer Additional Testing 04/24/21 16:10 04/24/21 Rubella Antibody 31.3 IU/mL (>15) 04/24/21 16:10 04/24/21 Varicella-Zoster IgG Antibody 550 index (Immune >165) 04/24/21 16:10 04/24/21 Glucose 1 Hour 99 mg/dL (76-139) 07/17/21 09:25 07/17/21 Group B Streptococcus (PCR) Pos for grp b strep H 10/02/21 15:33 10/02/21 -: Urine: negative Genetic Screens: Quad screen: Normal External Labs -: Urine: negative Prior (ies) Past Pregnancies Del. Date GA/Weeks Labor Lgth Wt Sex Route Outcome Anesthesia Place Delv Breastfeed Preg Comp Name 03/05/19 41.2 4 7 lb 8 oz Male vaginal live - full ter m epidural IH w Dr. Petersen for [facility] 6 months. post-dates induction [place] Delivery Date: 03/05/19 Last Updated by: Amanda Bejarano R.N. Pitocin. AROM. 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 Grandmother Celiac disease Mother Asthma S/P hysterectomy Family/Other Prostate cancer Skin cancer Brother Leukemia Social History marital status: number of children: 1 household members: spouse and children lives independently: Yes caregiver/support person: No housing: house pets and animals: Yes (2 dogs: do great with babies. 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 Used to be an 'avid coffee drinker'. ) Type(s) of exercise: walking (On weekends, a couple mile walks. ) and normal ROM and activity (Busy mom to 2 year old. Very active at work. ) frequency: daily Meds Home Medications and Allergies Home Medications Medication Instructions Recorded Confirmed Type vitamin-ferrous fumarate 1 cap PO QDAY #0 07/17/17 10/16/21 History 65 mg iron-folic acid 1 mg capsule (Mynatal) pyridoxine (vitamin B6) 50 mg 50 mg PO BID 03/13/21 10/16/21 History tablet hydrocortisone acetate 25 mg 25 mg CO BEDTIME #24 ea 03/20/21 10/16/21 Rx rectal suppository (Anusol-HC) Electronic Breast Pump #1 ea 09/29/21 10/16/21 Rx Allergies Allergy/AdvReac Type Severity Reaction Status Date / Time amoxicillin [AMOXICILLIN] Allergy Mild rash as Verified 10/16/21 14:53 infant OB Exam Narrative Exam Narrative: Gen: NAD, sitting comfortably in bed, appears well CV: RRR, no murmurs Resp: clear to auscultation bilaterally Abd: soft, nontender, gravid Ext: trace edema Objective Labs Result Diagrams: 10/25/21 02:45 Labs: Laboratory Results - last 24 hr 10/25/21 10/25/21 10/25/21 01:45 02:45 02:45 WBC 11.1 H RBC 3.95 L Hgb 10.9 L Hct 32.7 L MCV 82.8 MCH 27.5 MCHC 33.2 RDW 13.8 Plt Count 219 Neut % (Auto) 67.1 Lymph % (Auto) 24.1 L [place] % (Auto) 7.7 Eos % (Auto) 0.9 L Baso % (Auto) 0.2 Neut # (Auto) 7500 H Lymph # (Auto) 2700 [place] # (Auto) 900 Eos # (Auto) 100 Baso # (Auto) 0 SARS-CoV-2 (PCR) Negative Blood Type O Positive Antibody Screen Negative Assessment and Plan Assessment and Plan Assessment and Plan narrative: Pt is a 31yo at 39w6d who presented with SROM at home. GBS positive, Rh positive. No complications with . - Expectant management, anticipate - FHT reassuring - Due to duration since ROM, pitocin initiated, titrate as tolerated - Epidural for pain control when desired - GBS positive, due to amoxicillin allergy Cefazolin for prophylaxis
[2021-10-25] MEDS: CEFAZOLIN 1 GM VIAL IV (10:23)
[2021-10-25] MEDS: FENT 2MCG/ML BUPIV 0.125% EPI 200 MCG/100 ML PLAST..BAG 8 MCG EPIDURAL (13:45)
--- NOTE | 2021-10-25 14:36 | PM.OBPRVD ---
Labor & Delivery Delivery date: 10/25/21 Intrapartal Events: None Cervical ripening method: none Induction method: none Delivery augmentation: pitocin Delivery monitor: external FHT Route of delivery: Episiotomy description: None L&D Laceration Description: Perineal - 2nd Degree Delivery repair: chromic Estimated blood loss (mL): 200 Anesthesia Type: Epidural Complications: None Narrative: PROCEDURE: at 39w6d presented in with SROM and early labor and was admitted to Labor and Delivery. The patient progressed through the 1st stage over 13.5 hours. Pitocin was initiated to help labor progress. Pain was controlled with an epidural. The patient progressed through the 2nd stage over 20 minutes and delivered a viable male with APGARs 8/8 at 14:07 via without complications. The cord was cut and clamped after it stopped pulsating. The perineum and vagina were inspected with 2nd degree perineal laceration repaired with 2-O Chromic. PREPROCEDURE DIAGNOSIS: Intrauterine at 39w6d GBS positive RH positive POSTPROCEDURE DIAGNOSIS: Intrauterine at 39w6d, delivered Same as preprocedure Baby 1: gender: Male Presentation: vertex Position: Right Occiput Anterior Placenta delivery description: Spontaneous Cord Vessel Description: 3 Vessels score (1 min): 8 score (5 min): 9 weight: 8 lb 8.334 oz Plan for aftercare: Routine care
[2021-10-25] MEDS: DERMOPLAST SPRAY 20% 60 ML 1 SPRAY TOP (17:06)
[2021-10-25] MEDS: IBUPROFEN 600 MG TABLET PO ×2 (17:07→23:05)
[2021-10-25] MEDS: DOCUSATE 100 MG CAPSULE PO (17:07)
[2021-10-26] MEDS: IBUPROFEN 600 MG TABLET PO ×2 (04:44→10:45)
[2021-10-26] MEDS: LANOLIN OINT 7 GM 1 APPLIC TOP (04:54)
[2021-10-26] MEDS: PRENATAL VIT,CALC/IRON/FOLIC 1 TABLET 1 TAB PO (08:43)
[2021-10-26] MEDS: DOCUSATE 100 MG CAPSULE PO (08:43)
[2021-10-26] MEDS: FERROUS SULFATE 325 MG TABLET PO (08:43)
[2021-10-26 10:45] VITALS: TEMP 37.1
[2021-10-26 13:30] VITALS: BP 100/65; PULSE 63; RESP 16; TEMP 36.3
--- NOTE | 2021-10-26 14:29 | P.DS_ITS ---
Discharge Providers Provider Date of admission: 10/25/21 00:54 Discharge Date: 10/26/21 Primary care physician: Christy Gay MD Consults: 10/25/21 01:27 Consult to Anesthesiology Urgent Comment: Consulting Provider: Roby Sanchez Reason for consultation: labor 10/26/21 14:35 Consult to Military Technology Specialist Routine Comment: Discharge provider: Christy Gay MD Summary Hospital Course Date Patient Seen: 10/26/21 Time Patient Seen: 08:00 Diagnoses: Intrauterine at 39w6d GBS positive RH positive Hospital Course: The pt presented with SROM at home in early labor. Pitocin was initiated for labor augmentation. She received an epidural for pain control. She progressed to complete and had a spontaneous vaginal delivery of a viable baby boy on 10/25/21. A 2nd degree perineal laceration was then repaired. , there were no complications. At the time of discharge she was voiding, ambulating, and passing flatus without difficulty. Her lochia was decreasing appropriately. She was with good latch. Her pain was well controlled. She will f/u in clinic in 6 weeks for check. She desires Mirena IUD for contraception. Peripartum Data Infant Delivery Method: Natural Vaginal Laceration Description: Perineal - 2nd Degree Episiotomy description: None Procedures: Spontaneous vaginal delivery complications: none [place] 1: Gender: Male Disposition of : home Discharge Diagnosis (1) Spontaneous vaginal delivery: Status: Acute Status at Discharge Cognitive/behavioral status at discharge: oriented Functional status at discharge: independent ambulation Overall status at discharge: patient is progressing back to baseline Time Spent with Patient Time attestation: Total time spent providing and/or coordinating discharge services: Objective Labs Result Diagrams: 10/25/21 02:45 Exam Vital Signs (past 8 hours): - 10/26/21 10:45 Temperature 98.8 F Narrative Exam Narrative: Gen: NAD, sitting comfortably in bed, appears well CV: RRR, no murmurs Resp: clear to auscultation bilaterally Abd: soft, appropriately tender, fundus firm and below the umbilicus, nondistended Ext: no edema Discharge Plan Discharge Plan Patient Disposition: Home Discharge orders & Medications Prescriptions: New acetaminophen 325 mg Tablet 650 mg PO Q6HR PRN (Reason: Pain, Mild (1-3)) Qty: 30 0RF ferrous sulfate 325 mg (65 mg iron) Tablet 325 mg PO DAILY Qty: 30 0RF docusate sodium 100 mg Capsule 100 mg PO BID Qty: 30 0RF ibuprofen 600 mg Tablet 600 mg PO Q6HR PRN (Reason: Pain, Mild (1-3)) Qty: 30 0RF Continued hydrocortisone acetate [Anusol-HC] 25 mg suppository 25 mg SC BEDTIME Qty: 24 3RF Mynatal 1 EACH capsule 1 cap PO QDAY Qty: 0 0RF (DME) Electronic Breast Pump See Rx Instructions .Route .MEDSUPPLY Qty: 1 0RF Rx Instructions: As directed docusate sodium [Colace] 100 mg Capsule 100 mg PO DAILY 0RF Follow up/Referrals: Christy Gay MD [Primary Care Provider] - 6 Weeks (Please follow up with Dr. Gay, make an appointment for 6 weeks after delivery when you are at baby's appointment on Tuesday. If you have any questions/concerns or if you need to reschedule please call .) Diet/Activity/Treatments Diet: Diet as Tolerated and Regular Skin/Wound/Dressing Care Report to your healthcare provider any signs of infection, such as:: chills, fe yefri, increased pain and unusual drainage Visit Report/Discharge Packet Instructions: DI for Labor and Delivery, Vaginal Stand Alone Forms: Discharge: Care Visit Report Forms: Patient Portal/API, Stroke Signs & Symptoms Discharge Data Primary Care Provider: Christy Gay
== END 2021-10-26 16:20 | disposition home or self-care (01) | DRG 807 ==
PROVIDERS: Admitting Provider Family Medicine; Family Provider Family Medicine; PCP Family Medicine; Referring Provider Family Medicine; Visit Provider Family Medicine
DX: O99.824 Streptococcus B carrier state complicating childbirth (principal); Z37.0 Single live birth; Z3A.39 39 weeks gestation of pregnancy; O70.1 Second degree perineal laceration during delivery; Z20.822 Contact with and (suspected) exposure to COVID-19
CPT/HCPCS: 01967; 59050; 59400; 85025; 86850; 86900; 86901; 87635; C9803; G0379; J0690; J2590

== ENCOUNTER → 2022-08-27 08:44 | Outpatient (CLI) | payer OTHER, SELFPAY ==
--- NOTE | 2022-08-27 08:45 | DI.MG.S_ITS ---
BILATERAL DIGITAL DIAGNOSTIC MAMMOGRAM 3D/2D: 08/27/2022 CLINICAL: Baseline. Left breast pain. No prior exams were available for comparison. Both breasts are heterogeneously dense, which may obscure small masses (category c / 51-75% glandular tissue). No significant masses, calcifications, or other findings are seen in either breast. IMPRESSION: INCOMPLETE: NEEDS ADDITIONAL IMAGING EVALUATION There is no mammographic abnormality seen in the left breast to correspond with the pain, however, targeted ultrasound of the left breast is recommended and will be performed immediately following this exam. Based on the Tyrer Cuzick model (a risk assessment model) the patient's lifetime risk is 14.3% and her 10 year risk is 0.8%. According to the ACR, ACS, and NCCN guidelines, an annual breast MRI exam along with mammogram is recommended if the patient's lifetime risk is 20% or greater. This exam was interpreted at Station ID: [id number]. NOTE: For mammograms, a report in lay terms will be sent to the patient. Approximately 15% of breast malignancies will not be visualized mammographically. In the management of a palpable breast mass, a negative mammogram must not discourage biopsy of a clinically suspicious lesion. Electronically Signed By: Carmen muñoz/:08/27/2022 09:42:14 ACR BI-RADS Category 0: Incomplete [id number]
--- NOTE | 2022-08-27 08:45 | DI.US.S_ITS ---
LIMITED ULTRASOUND OF LEFT BREAST AND AXILLA: 08/27/2022 CLINICAL: Intermittent pain in left breast. Comparison is made to exam dated: 08/27/2022 mammogram - [facility]. Color flow ultrasound of the left breast axilla was performed on the areas of interest. Key scale images of the real-time examination were reviewed. IMPRESSION: NEGATIVE There is no sonographic evidence of malignancy. There is no mammographic or sonographic abnormality seen in the left breast to correspond with the pain, however, clinical followup is recommended. This exam was interpreted at Station ID: [id number]. Electronically Signed By: Carmen Lackey M.D. lk/:08/27/2022 09:43:17 letter sent: Clinical Evaluation Ultrasound BI-RADS: 1 Negative
== END ==
PROVIDERS: Family Provider Family Medicine; PCP Family Medicine; Referring Provider Physician Assistant; Visit Provider Physician Assistant
DX: R92.2 Inconclusive mammogram (principal); N64.4 Mastodynia
CPT/HCPCS: 76642; 77066; G0279

== ENCOUNTER → 2023-03-18 15:18 | Outpatient (CLI) | payer OTHER, SELFPAY ==
--- NOTE | 2023-03-18 15:19 | DI.US.S_ITS ---
PROCEDURE: US PELVIC COMPLETE INDICATIONS: IUD PLACEMENT TECHNIQUE: Real-time scanning was performed of the pelvic organs, with image documentation. Additional endovaginal scanning was necessary due to incomplete visualization of the adnexal and endometrial structures by transabdominal scanning. COMPARISON: None. FINDINGS: Uterus: Uterus is mobile and normal in size at 6.7 x 2.9 x 4.8 cm. The myometrium is homogeneous. The endometrium measures 1-2 mm combined thickness. The IUD is seen at its expected location. Ovaries: The right ovary measures 3.1 x 1.9 x 2.5 cm, with a calculated ovarian volume of 8 cc. Within the right ovary, there is an echogenic focus seen that measures 9 x 5 x 9 mm. No abnormal vascularity can be seen. The left ovary measures 3 x 1.9 x 2.9 cm, with a calculated ovarian volume of 8.9 cc. Less than 12 follicles can be seen in each ovary. No adnexal masses are seen. Normal appearing venous and arterial waveforms are confirmed to each ovary. Other: No pathologic free abdominal or pelvic fluid. IMPRESSION: The IUD is seen at its expected location. 9 mm nonvascular echogenic focus seen within the right ovary, which may be related to resolving hemorrhagic cyst. We strive to produce accurate, complete, and clear reports of imaging services. To assist us in improving patient care, this report was composed using standard report templates and voice recognition software. Therefore, it may contain abnormal punctuation, insertions and/or omissions. Occasional wrong-word or sound-alike substitutions may occur. Though we review the report and make efforts to correct it, we do recommend that the report be read carefully in proper context to recognize any text inaccuracies. Dictated by: Kevon Guo M.D. on 03/18/2023 at 15:12 Approved by: Kevon Guo M.D. on 03/18/2023 at 15:14
== END ==
PROVIDERS: Family Provider Family Medicine; PCP Family Medicine; Referring Provider Family Medicine; Visit Provider Family Medicine
DX: T83.32XA Displacement of intrauterine contraceptive device, initial encounter (principal)
CPT/HCPCS: 76830; 76856; 93975

== ENCOUNTER → 2023-12-26 06:48 | Outpatient (CLI) | payer OTHER, SELFPAY ==
--- NOTE | 2023-12-26 06:49 | DI.US.S_ITS ---
PROCEDURE: US PELVIC COMPLETE INDICATIONS: MENORRHAGIA WITH CRAMPING TECHNIQUE: Real-time scanning was performed of the pelvic organs, with image documentation. Additional endovaginal scanning was necessary due to incomplete visualization of the adnexal and endometrial structures by transabdominal scanning. COMPARISON: [facility], US, US PELVIC COMPLETE, 03/18/2023, 15:28. FINDINGS: Uterus: Uterus is anteverted and normal in size at 7.1 x 3.6 x 4.5 cm. The myometrium is homogeneous. The endometrium measures 6.8 mm combined thickness. Ovaries: The right ovary measures 2.1 x 2.6 x 1.9 cm, with a calculated ovarian volume of 5.2 cc. The left ovary measures 2.7 x 1.9 x 1.9 cm, with a calculated ovarian volume of 5.1 cc. The ovaries have a normal sonographic appearance. Less than 12 follicles can be seen in each ovary. No adnexal masses are seen. Other: No pathologic free abdominal or pelvic fluid. IMPRESSION: Unremarkable exam. We strive to produce accurate, complete, and clear reports of imaging services. To assist us in improving patient care, this report was composed using standard report templates and voice recognition software. Therefore, it may contain abnormal punctuation, insertions and/or omissions. Occasional wrong-word or sound-alike substitutions may occur. Though we review the report and make efforts to correct it, we do recommend that the report be read carefully in proper context to recognize any text inaccuracies. Dictated by: Brianna He M.D. on 12/26/2023 at 11:47 Approved by: Brianna He M.D. on 12/26/2023 at 11:48
== END ==
PROVIDERS: Family Provider Family Medicine; PCP Family Medicine; Referring Provider Family Medicine; Visit Provider Family Medicine
DX: R10.9 Unspecified abdominal pain (principal)
CPT/HCPCS: 76830; 76856

== ENCOUNTER → 2024-03-09 15:51 | Outpatient (CLI) | payer OTHER, SELFPAY ==
[2024-03-09 17:18] LABS: Free T3, Triiodothyronine Free 2.92 pg/mL (2.77-5.27); Free T4, Direct Thyroxine 0.78 ng/dL (0.78-2.19)
[2024-03-09 17:31] LABS: Thyroid Stimulating Hormone 1.42 uIU/mL (0.47-4.68)
== END ==
LOC: LAB 15:52
PROVIDERS: Family Provider Family Medicine; PCP Family Medicine; Referring Provider Family Medicine; Visit Provider Family Medicine
DX: R14.0 Abdominal distension (gaseous) (principal); N94.6 Dysmenorrhea, unspecified
CPT/HCPCS: 36415; 82784; 83516; 84439; 84443; 84481; 86376; 86800

== ENCOUNTER 2024-06-14 09:01 | Day surgery (SDC) | payer OTHER, SELFPAY ==
[2024-06-11 14:08] VITALS: BMI 26.4
--- NOTE | 2024-06-14 09:21 | PM.PREOP ---
Pre-operative Note Interval Note History & Physical reviewed/Exam performed by Physician: Yes Changes to H&P: No H&P completed within 30 days and has changed as indicated here:: see H&P from 06/01/24
[2024-06-14 09:22] VITALS: BP 127/77; PULSE 75; RESP 16; TEMP 36.7; O2SAT 100; BMI 26.4
[2024-06-14] MEDS: ACETAMINOPHEN 325 MG TABLET 975 MG PO (09:35)
[2024-06-14] MEDS: LACTATED RINGERS 1,000 ML 42 ML IV (09:37)
--- NOTE | 2024-06-14 10:28 | SUR.OPER ---
Lithotomy on padded OR bed, head on pillow, RIGHT arm secured on padded arm boards at <90 degrees abduction, LEFT arm tucked. Legs secured in padded yellow fins stirrups.
--- NOTE | 2024-06-14 10:50 | PM.OP.1 ---
Operative Date/Time/Diagnoses Date of procedure: 06/14/24 Time of procedure: 10:30 Pre-op diagnosis: 1. Dysmenorrhea 2. Family history of endometriosis Post-op diagnosis: same Procedure & Clinicians Procedure: Diagnostic laparoscopy Same procedure as scheduled: Yes Indications: 34yo F with dysmenorrhea and family history of endometriosis, desiring diagnostic laparoscopy to confirm diagnosis. Surgeon: Eloise Meza Click Yes if Unassisted: Yes Anesthesia Type: General Operative Notes Findings: No endometriosis lesions noted throughout the pelvis and abdomen. Normal appearing uterus, bilateral fallopian tubes, and bilateral ovaries. Normal appearing liver edge and gallbladder. Normal appendix. Closure Type: primary Specimen(s): none sent Estimated Blood Loss (mL): 2 Blood products transfused: none Procedure in detail: The risks, benefits, indications and alternatives of the procedure were reviewed with the patient and informed consent was obtained. The pt was taken to the operating room where general anesthesia was obtained without difficulty. The pt was then placed in the low lithotomy position using gel-padded Terry Stirrups. Sequential compression devices were placed bilaterally for VTE prophylaxis. The bladder was drained with a straight catheter, then the pt was prepped and draped in the usual sterile fashion. Attention was then turned to the patient?s abdomen where a 5mm skin incision was made in the inferior aspect of the umbilicus after injection of 0.25% marcaine. A 5mm trocar and sleeve were then carefully introduced into the peritoneal cavity under direct visualization at a 90-degree angle while tenting up the abdominal wall. Intra-peritoneal placement was confirmed under direct visualization with the laparoscope with entry pressure <5mmHg. A pneumoperitoneum was obtained with several liters of CO2 gas, maximum pressure of 15mmHg. Upon entry into the peritoneal cavity, structures immediately below the incision were inspected and found to be free of injury. One additional 5mm trocar was placed in the left lateral aspect of the abdominal wall under direct laparoscopic visualization after injection of 0.25% marcaine. A survey of the pt?s abdomen and pelvis was notable for the above findings. The gas was then turned off and all CO2 was removed from the pt?s abdomen. The trocars were removed. The skin incision sites were reapproximated using 4-0 monocryl and dermabond. At the completion of the case, the sponge and needle counts were correct x 2. The patient tolerated the procedure well and was taken to the PACU in stable condition. Complications: none Post-operative Condition: stable Disposition: PACU Plan for aftercare: Discharge to home once meeting criteria.
[2024-06-14 10:52] VITALS: BP 142/92; PULSE 104; RESP 15; TEMP 36.9; O2SAT 98
[2024-06-14 10:57] VITALS: BP 141/89; PULSE 102; RESP 12; O2SAT 100
[2024-06-14 11:02] VITALS: BP 132/85; PULSE 102; RESP 14; O2SAT 100
[2024-06-14 11:06] VITALS: BP 131/84; PULSE 87; RESP 13; O2SAT 100
[2024-06-14 11:11] VITALS: BP 138/88; PULSE 88; RESP 11; TEMP 37.1; O2SAT 100
[2024-06-14] MEDS: OXYCODONE IR 5 MG TABLET PO ×2 (11:31→12:03)
== END 2024-06-14 12:03 | disposition home or self-care (01) ==
PROVIDERS: Family Provider Family Medicine; PCP Family Medicine; Referring Provider Student in an Organized Health Care Education/Training Program; Visit Provider Student in an Organized Health Care Education/Training Program
PROC: 0U5B4ZZ Destruction of Endometrium, Percutaneous Endoscopic Approach (ICD-10-PCS; CPT 58662; principal; 2024-06-14 10:15)
DX: N94.6 Dysmenorrhea, unspecified (principal); Z84.2 Family history of other diseases of the genitourinary system
CPT/HCPCS: 49320; 81025; J1100; J1885; J2250; J2405; J2704; J3010; J3490